=== PATIENT | female | born 1975 | race Hispanic/Latino ===

== ENCOUNTER 2016-11-29 13:27 | Outpatient (CLI) | payer BC | END 2016-11-29 13:28 | disposition home or self-care (01) | LOC: LAB 13:27 | PROVIDERS: ATTEND Obstetrics & Gynecology | DX: N92.6 Irregular menstruation, unspecified (principal) | CPT/HCPCS: 36415; 82670; 83001; 84439; 84443 ==

== ENCOUNTER 2016-12-21 11:00 | Outpatient (CLI) | payer BC | END 2016-12-21 11:01 | disposition home or self-care (01) | LOC: SLR 11:00 | PROVIDERS: ATTEND Internal Medicine | DX: G47.33 Obstructive sleep apnea (adult) (pediatric) (principal); E66.9 Obesity, unspecified | CPT/HCPCS: 95810 ==

== ENCOUNTER 2017-02-15 09:35 | Outpatient (CLI) | payer BC ==
[~2017-02-15 09:35] MED LIST: PROVENTIL IH ONE
== END 2017-02-15 09:36 | disposition home or self-care (01) ==
LOC: PF 09:35
PROVIDERS: ATTEND Specialist
DX: I10 Essential (primary) hypertension (principal)
CPT/HCPCS: 94060; 94640; 94726; 94729

== ENCOUNTER 2017-02-18 08:44 | Outpatient (CLI) | payer BC | END 2017-02-18 08:45 | disposition home or self-care (01) | LOC: CARD 08:44 | PROVIDERS: ATTEND Specialist | DX: E10.43 Type 1 diabetes mellitus with diabetic autonomic (poly)neuropathy (principal); I10 Essential (primary) hypertension; E66.09 Other obesity due to excess calories | CPT/HCPCS: 93005; 93010; 93017 ==

== ENCOUNTER 2017-02-24 07:02 | Outpatient (CLI) | payer BC ==
[2017-02-24 07:18] LABS: Basophils % (Auto) 0.4 % (0.0-1.8); Eosinophils % (Auto) 1.2 % (0.0-4.3); Hematocrit 49.6 % (30.3-42.9); Hemoglobin 16.6 gm/dl (10.1-14.3); Mean Corpuscular HGB Conc 34 % (30-34); Mean Corpuscular Hemoglobin 31 pg (28-32); Mean Corpuscular Volume 91 fl (79-97); Platelet Count 197 K/mm3 (140-440); Red Blood Count 5.45 M/mm3 (3.65-5.03); Red Cell Distribution Width 13.4 % (13.2-15.2); White Blood Count 7.6 K/mm3 (4.5-11.0)
[2017-02-24 07:35] LABS: Alanine Aminotransferase 16 units/L (7-56); Albumin 3.7 g/dL (3.9-5); Albumin/Globulin Ratio 1.2 %; Anion Gap 17 mmol/L; BUN/Creatinine Ratio 18.33; Bilirubin,Total 0.5 mg/dL (0.1-1.2); Blood Urea Nitrogen 11 mg/dL (7-17); Calcium 8.7 mg/dL (8.4-10.2); Carbon Dioxide 21 mmol/L (22-30); Chloride 100.6 mmol/L (98-107); Cholesterol 172 mg/dL (50-199); Glucose 240 mg/dL (65-100); HDL Cholesterol 47 mg/dL (40-59); LDL Cholesterol,Direct 107 mg/dL (50-130); Sodium 135 mmol/L (137-145); Total Protein 6.8 g/dL (6.3-8.2); Triglycerides 91 mg/dL (2-149)
[2017-02-24 08:38] LABS: Alkaline Phosphatase 91 units/L (35-129)
[2017-02-27 19:14] LABS: Vitamin D, 25-OH, Total 21 ng/mL (30-100)
== END 2017-02-24 07:03 | disposition home or self-care (01) ==
LOC: LAB 07:02
PROVIDERS: ATTEND Specialist
DX: E11.65 Type 2 diabetes mellitus with hyperglycemia (principal); E55.9 Vitamin D deficiency, unspecified
CPT/HCPCS: 36415; 80053; 80061; 82306; 83036; 85025

== ENCOUNTER 2017-07-01 08:08 | Outpatient (CLI) | payer BC ==
[2017-07-01 08:25] LABS: Basophils % (Auto) 0.6 % (0.0-1.8); Eosinophils % (Auto) 0.7 % (0.0-4.3); Hematocrit 46.7 % (30.3-42.9); Hemoglobin 15.9 gm/dl (10.1-14.3); Mean Corpuscular HGB Conc 34 % (30-34); Mean Corpuscular Hemoglobin 32 pg (28-32); Mean Corpuscular Volume 93 fl (79-97); Platelet Count 210 K/mm3 (140-440); Red Blood Count 5.04 M/mm3 (3.65-5.03); White Blood Count 7.6 K/mm3 (4.5-11.0)
[2017-07-01 09:15] LABS: Alanine Aminotransferase 47 units/L (7-56); Albumin 3.8 g/dL (3.9-5); Albumin/Globulin Ratio 1.1 %; Alkaline Phosphatase 114 units/L (35-129); Anion Gap 26 mmol/L; BUN/Creatinine Ratio 21.66; Blood Urea Nitrogen 13 mg/dL (7-17); Calcium 8.6 mg/dL (8.4-10.2); Carbon Dioxide 16 mmol/L (22-30); Chloride 98.2 mmol/L (98-107); Cholesterol 221 mg/dL (50-199); Glucose 396 mg/dL (65-100); HDL Cholesterol 45 mg/dL (40-59); LDL Cholesterol,Direct 147 mg/dL (50-130); Potassium 4.4 mmol/L (3.6-5.0); Sodium 136 mmol/L (137-145); Total Protein 7.3 g/dL (6.3-8.2); Triglycerides 147 mg/dL (2-149)
== END 2017-07-01 08:09 | disposition home or self-care (01) ==
LOC: LAB 08:08
PROVIDERS: ATTEND Specialist
DX: Z01.812 Encounter for preprocedural laboratory examination (principal); E11.9 Type 2 diabetes mellitus without complications; E66.01 Morbid (severe) obesity due to excess calories; K30 Functional dyspepsia
CPT/HCPCS: 36415; 80053; 80061; 83036; 84443; 85025

== ENCOUNTER 2017-07-05 06:19 | Day surgery (SDC) | payer BC ==
[2017-07-05] MEDS ORDERED: NACL 0.9% 1000 ML 1,000 ML IV SCH (08:00)
[2017-07-05] MEDS ORDERED: DIPRIVAN 10 MG/ML IV ONE (08:03)
--- NOTE | 2017-07-05 08:03 | Anesthesia Day of Surgery ---
Anesthesia Day of Surgery - Day of Surgery Patient Examined: Yes Patient H&P Reviewed: Yes Patient is NPO: Yes
--- NOTE | 2017-07-05 08:03 | Anesthesia Consultation ---
Anesthesia Consult and Med Hx Date of service: 07/05/17 - Airway Anesthetic Teeth Evaluation: Good ROM Head & Neck: Adequate Mental/Hyoid Distance: Adequate Mallampati Class: Class I Intubation Access Assessment: Probably Good - Pulmonary Exam CTA: Yes - Cardiac Exam Cardiac Exam: RRR - Pre-Operative Health Status ASA Pre-Surgery Classification: ASA3 Proposed Anesthetic Plan: MAC - Pulmonary Hx Sleep Apnea: Yes - Cardiovascular System Hx Hypertension: Yes (NO MEDICATIONS, "I WAS ON PILL TO PROTECT MY KIDNEYS,NO LONGER TAKES") - Gastrointestinal Hx Gastroesophageal Reflux Disease: Yes - Endocrine Hx Non-Insulin Dependent Diabetes: Yes - Other Systems Hx Obesity: Yes
[2017-07-05 08:53] VITALS: BP 124/71
--- NOTE | 2017-07-05 09:07 | Post Anesthesia Evaluation ---
- Post Anesthesia Evaluation Patient Participated: Yes Airway Patent: Yes Stable Respiratory Function: Yes Nausea/Vomiting: No Temp > 96.8F: Yes Pain Manageable: Yes Adequeate Hydration: Yes Anesthesia Complications: No Block Receding Appropriately: Not Applicable Patient on Ventilator: No
== END 2017-07-05 06:20 | disposition home or self-care (01) ==
LOC: GIO 06:19
PROVIDERS: ATTEND Specialist
DX: K44.9 Diaphragmatic hernia without obstruction or gangrene (principal); K21.0 Gastro-esophageal reflux disease with esophagitis; G47.33 Obstructive sleep apnea (adult) (pediatric); I10 Essential (primary) hypertension; E11.9 Type 2 diabetes mellitus without complications; M19.90 Unspecified osteoarthritis, unspecified site; E66.01 Morbid (severe) obesity due to excess calories; Z68.38 Body mass index [BMI] 38.0-38.9, adult; Z88.2 Allergy status to sulfonamides; Z88.1 Allergy status to other antibiotic agents; Z98.890 Other specified postprocedural states; Z72.89 Other problems related to lifestyle; Z98.51 Tubal ligation status; Z79.4 Long term (current) use of insulin; Z79.899 Other long term (current) drug therapy; Z83.3 Family history of diabetes mellitus; Z82.49 Family history of ischemic heart disease and other diseases of the circulatory system
CPT/HCPCS: 43235; 81025; J2704; J7030

== ENCOUNTER 2017-07-12 07:13 | Inpatient (IN) | payer BC ==
[~2017-07-12 07:13] MED LIST changes: +APRESOLINE IV PRN; +DILAUDID IV PRN; +FLAGYL 500 MG/100 ML 500 MG/100 ML BAG IV NR; +MORPHINE IV PRN; -PROVENTIL IH ONE; +REGLAN IV PRN; +TRANSDERM-SCOP TD SCH; +ZOFRAN IV PRN
[2017-07-12] MEDS ORDERED: MARCAINE-EPI 0.5%-1:200,000 INFILTRATI ONE ×2 (07:45→09:21)
[2017-07-12] MEDS ORDERED: NACL BACTERIOSTATIC INFILTRATI ONE (07:45)
--- NOTE | 2017-07-12 07:46 | Anesthesia Day of Surgery ---
Anesthesia Day of Surgery - Day of Surgery Patient Examined: Yes Patient H&P Reviewed: Yes Patient is NPO: Yes
[2017-07-12] MEDS ORDERED: ZEMURON IV ONE ×2 (07:47→09:05)
--- NOTE | 2017-07-12 07:48 | Anesthesia Consultation ---
Anesthesia Consult and Med Hx Date of service: 07/12/17 - Airway Anesthetic Teeth Evaluation: Good ROM Head & Neck: Adequate Mental/Hyoid Distance: Adequate Mallampati Class: Class II Intubation Access Assessment: Probably Good - Pulmonary Exam CTA: Yes - Cardiac Exam Cardiac Exam: RRR - Pre-Operative Health Status ASA Pre-Surgery Classification: ASA3 Proposed Anesthetic Plan: General - Pulmonary Hx Smoking: No Hx Sleep Apnea: Yes (doesn't use her CPAP) - Cardiovascular System Hx Hypertension: Yes (not treated) - Central Nervous System Hx Psychiatric Problems: No - Gastrointestinal Hx Gastroesophageal Reflux Disease: Yes - Endocrine Hx Non-Insulin Dependent Diabetes: Yes - Other Systems Hx Alcohol Use: Yes (occas) Hx Cancer: No Hx Obesity: Yes
[2017-07-12] MEDS ORDERED: XYLOCAINE MPF 2% ONE (07:50)
[2017-07-12] MEDS ORDERED: DIPRIVAN 10 MG/ML IV ONE (07:51)
[2017-07-12] MEDS ORDERED: DILAUDID ONE (07:51)
[2017-07-12] MEDS ORDERED: PEPCID IV NR (08:00)
[2017-07-12] MEDS ORDERED: TRANSDERM-SCOP TD NR (08:00)
[2017-07-12] MEDS ORDERED: VERSED IV NR (08:00)
[2017-07-12] MEDS ORDERED: LOVENOX SUB-Q NR (08:00)
[2017-07-12] MEDS ORDERED: NACL 0.9% 1000 ML 1,000 ML IV SCH (08:00)
[2017-07-12 08:06] LABS: Bilirubin,Urine NEG (Negative); Blood,Urine NEG (Negative); Ketones,Urine 80 mg/dL (Negative); Leukocyte Esterase,Urine NEG (Negative); Mucus,Urine FEW /HPF; Nitrite,Urine NEG (Negative); Protein,Urine <15 mg/dL mg/dL (Negative); Urobilinogen,Urine < 2.0 mg/dL (<2.0)
[2017-07-12] MEDS ORDERED: XYLOCAINE 1% 20 mL ONE (08:19)
[2017-07-12] MEDS ORDERED: ZOFRAN ONE (08:54)
[2017-07-12] MEDS ORDERED: DECADRON ONE (08:54)
[2017-07-12] MEDS ORDERED: ANCEF ONE ×2 (09:05→09:07)
[2017-07-12] MEDS ORDERED: XYLOCAINE 1% 20 mL INFILTRATI ONE (09:21)
[2017-07-12] MEDS ORDERED: NACL 0.9% IR ONE (09:22)
[2017-07-12] MEDS ORDERED: ROBINUL ONE (09:47)
[2017-07-12] MEDS ORDERED: NEOSTIGMINE ONE (09:48)
[2017-07-12] MEDS ORDERED: NACL 0.9% 1000 ML 1,000 ML ONE (09:49)
[2017-07-12] MEDS ORDERED: NEO SYNEPHRINE/NS Syringe(OR USE) IV ONE (10:00)
[2017-07-12] MEDS ORDERED: DILAUDID IV PRN (10:30)
[2017-07-12 10:42] LABS: Basophils % (Auto) 0.4 % (0.0-1.8); Eosinophils % (Auto) 0.7 % (0.0-4.3); Hematocrit 46.4 % (30.3-42.9); Hemoglobin 15.4 gm/dl (10.1-14.3); Mean Corpuscular HGB Conc 33 % (30-34); Mean Corpuscular Hemoglobin 32 pg (28-32); Mean Corpuscular Volume 96 fl (79-97); Platelet Count 211 K/mm3 (140-440); Red Blood Count 4.86 M/mm3 (3.65-5.03); Red Cell Distribution Width 13.2 % (13.2-15.2); White Blood Count 8.5 K/mm3 (4.5-11.0)
[2017-07-12 10:57] LABS: Alanine Aminotransferase 74 units/L (7-56); Albumin 3.8 g/dL (3.9-5); Albumin/Globulin Ratio 1.2 %; Alkaline Phosphatase 82 units/L (35-129); Anion Gap 24 mmol/L; BUN/Creatinine Ratio 16.66; Blood Urea Nitrogen 10 mg/dL (7-17); Calcium 8.1 mg/dL (8.4-10.2); Carbon Dioxide 19 mmol/L (22-30); Chloride 100.8 mmol/L (98-107); Glucose 262 mg/dL (65-100); Potassium 4.6 mmol/L (3.6-5.0); Sodium 139 mmol/L (137-145); Total Protein 6.9 g/dL (6.3-8.2)
[2017-07-12] MEDS: MYLICON PO PRN ×2 (11:10→21:33)
[2017-07-12] MEDS: LACTATED RINGERS 1,000 ML IV SCH ×2 (14:32→21:32)
[2017-07-13 03:49] LABS: Basophils % (Auto) 0.2 % (0.0-1.8); Eosinophils % (Auto) 0.1 % (0.0-4.3); Hematocrit 42.7 % (30.3-42.9); Hemoglobin 14.5 gm/dl (10.1-14.3); Mean Corpuscular HGB Conc 34 % (30-34); Mean Corpuscular Hemoglobin 32 pg (28-32); Mean Corpuscular Volume 95 fl (79-97); Platelet Count 192 K/mm3 (140-440); Red Blood Count 4.51 M/mm3 (3.65-5.03); Red Cell Distribution Width 13.3 % (13.2-15.2); White Blood Count 8.7 K/mm3 (4.5-11.0)
[2017-07-13 04:13] LABS: Alanine Aminotransferase 55 units/L (7-56); Albumin 3.5 g/dL (3.9-5); Albumin/Globulin Ratio 1.1 %; Alkaline Phosphatase 77 units/L (35-129); Anion Gap 25 mmol/L; Blood Urea Nitrogen 8 mg/dL (7-17); Calcium 8.4 mg/dL (8.4-10.2); Carbon Dioxide 16 mmol/L (22-30); Chloride 99.6 mmol/L (98-107); Glucose 205 mg/dL (65-100); Potassium 4.9 mmol/L (3.6-5.0); Sodium 136 mmol/L (137-145); Total Protein 6.8 g/dL (6.3-8.2)
[2017-07-13] MEDS: LACTATED RINGERS 1,000 ML IV SCH ×2 (05:00→10:24)
[2017-07-13 08:01] VITALS: BP 137/75
[2017-07-13] MEDS ORDERED: LOVENOX SUB-Q SCH (10:00)
--- NOTE | 2017-07-13 11:40 | Discharge Summary ---
Providers - Providers Date of Admission: 07/12/17 07:13 Date of discharge: 07/13/17 Attending physician: HE BONE Primary care physician: ZAN DURAND Hospitalization Condition: Good Procedures: Lap sleeve gastrectomy Hospital course: 42 y.o. female admitted for lap sleeve gastrectomy. Pt tolerated procedure. She was discharged on POD 1. Disposition: DC-01 TO HOME OR SELFCARE Core Measure Documentation - Palliative Care Palliative Care/ Comfort Measures: Not Applicable - Core Measures Any of the following diagnoses?: none Exam - Physical Exam Narrative exam: VSS Abd: soft, obese, incisions cdi. no rebound no guarding - Constitutional Vitals: Temp Pulse Resp BP Pulse Ox 98.2 F 88 20 137/75 100 07/13/17 07:00 07/13/17 07:00 07/13/17 07:00 07/13/17 07:00 07/13/17 07:00 Plan Activity: other (no lifting >15lbs. must ambulate often- every hr. ) Diet: clear liquids (sugar free clears) Additional Instructions: follow up for wound check in 24-48hrs. Keep dressings in place until wound check. Follow up with: ZAN DURAND MD [Primary Care Provider] - 7 Days
--- NOTE | 2017-07-13 11:41 | Admit Criteria Form ---
Admission Criteria Documentation: AMBULATORY SURGERY EXCEPTION CRITERIA Ambulatory Surgery Exception Criteria ( Place 'X' for any and all applicable criteria): Surgery or procedure performed on ambulatory basis may require inpatient stay for[A] ANY ONE of the following(1)(2)(3)(4)(5)(6)(7)(8)(9): [X] I. A preoperative situation, condition, or finding that warrants inpatient stay as indicated by ANY ONE of the following: [] a) Inpatient care needed because of severity of a disease or condition rather than the surgery (eg, severe cardiac or respiratory disease, severe infection) (15) (16 ) (17) (18) [] b) Emergent procedure (eg, angioplasty for acute ischemia)(19) [] c) Complex surgical approach or situation as indicated by ANY ONE of the following(3): [] i) Open approach needed instead of usual endoscopic, transcatheter, or other less invasive procedure [] ii) Difficult approach because of previous operation [] iii) Airway monitoring required after open neck procedures(20)(21) [] iv) Large mass requiring unusually extensive dissection [] v) Additional complicating feature requiring inpatient care (eg, drain management)(22(23): [X] d) Major surgery in a pt with high anesthetic risk as indicated by ANY ONE of the following (2)(3)(5)(7)(8): [X] i) ASA risk class III or higher (severe systemic disease impairing function) [D] [] ii) Advanced age (eg, older than 85 years)(14)(24) [] iii) Symptomatic heart failure(25) [] iv) Symptomatic asthma or COPD(8)(21) [] v) Morbid obesity with hemodynamic or respiratory problems(20)( 21)(26)(27) [] vi) Obstructive sleep apnea(20)(21) [] vii) Former premature infants who are younger than 60 weeks [] viii) High risk for severe postoperative abnormalities (eg, severe postoperative hypocalcemia after parathyroidectomy for severe hyperparathyroidism)(27)( 28) [] ix) Unstable angina(25) [] e) Drug-related risk requiring inpatient stay as indicated by ANY ONE of the following(5)(10)(14)(32)(33) [] i) Procedure requires discontinuing drugs or other therapy (eg , antiarrhythmic medication, antiseizure medication), which necessitates inpatient observation or treatment.(18)(31) [] ii) Major surgery and high risk drug use as indicated by ANY ONE of the following: [] 1) Active abuse of cocaine or similar drug [] 2) Monoamine oxidase inhibitor use [] 3) Other drug identified as posing risk [] f) Inadequate outpatient care situation as indicated by ANY ONE of the following(5)(10)(14)(32)(33) [] i) Patient lives remote from medical facility and procedure has urgent complication potential, and temporary nearby residence cannot be arranged [] ii) Patient will have postprocedure incapacitation and inadequate assistance at home, or alternative level of care cannot be arranged. [] iii) Patient will have long general anesthesia or procedure side effect resolution time, and competent person to stay with patient on first postoperative night at home or alternative level of care cannot be arranged. []iv) Other inadequate outpatient situation that cannot be handled by other means [] II. A perioperative event, condition, or finding that warrants inpatient stay as indicated by ANY ONE of the following (1)(2)(3): [] a) Inadequate physiologic recovery: cardiovascular, respiratory, or hemodynamic status not normal or near preoperative baseline(18) [] b) Hemodynamic instability [] c) Patient not alert with near normal or baseline mental status [] d) Temperature not normal or as expected and not appropriate for outpatient treatment of condition [] e) Ambulatory or appropriate activity level status not yet achieved post procedure [E](34)(35)(36) [] f) Operative site not appropriate (eg, unexpected or excessive drainage or bleeding) [] g) Postoperative effects not resolved or adequately managed (eg, significant pain or vomiting not appropriate for outpatient or next level of care)(10)(12) [] h) Complicating features requiring inpatient care as indicated by ANY ONE of the following(37): [] i) Severe complications of procedure (eg, bowel injury, airway compromise, vascular injury,severe hemorrhage) [] ii) Extensive (eg, dissection far beyond usual scope of procedure ) or prolonged (eg, 120 minutes beyond usual) surgery needed requiring inpatient postoperative care [] iii) Conversion to an open or complex procedure that requires inpatient care (eg, open vs laparoscopic cholecystectomy, abdominal vs vaginal hysterectomy)(38) [] iv) Comorbid condition or test result identified during or post procedure that requires inpatient care (7) [] v) Malignant hyperthermia(30) [] vi) Other complicating feature requiring inpatient care(22)(23) Inpatient stay may be needed until ALL of the following are present (1)(2)(3)(4) (5)(6)(10)(14)(33)(40): []a) Physiologic recovery: cardiovascular, respiratory, and hemodynamic status normal or near preoperative baseline []b) Hemodynamic stability []c) Patient alert, with near normal or baseline mental status []d) Temperature appropriate: patient afebrile or temperature appropriate for outpt treatment of condition []e) Activity level appropriate: ambulatory or appropriate activity level post procedure []f) Operative site appropriate as indicated by ALL of the following: []i) Site dry or with expected drainage []ii) Any blood noted is as expected for procedure. []g) Postoperative effects resolved or managed as indicated by ALL of the following: []i) Pain management appropriate for outpatient (or next level of) care(10) []ii) Minimal nausea and vomiting: if present, successfully treated with oral medication(12) []iii) Headache, dizziness, or drowsiness (if present) are mild. []h) Voiding status acceptable as indicated by ANY ONE of the following: []i) Voiding spontaneously []ii) No voiding but instructions given for follow-up in 6 to 8 hours []iii) Urinary catheter in place, and instructions given for follow-up []i) Complicating features requiring inpatient care manageable at a lower level of care(37) []j) Comorbid conditions manageable at a lower level of care(37) The original [employer] content created by [employer] has been revised. The portions of the content which have been revised are identified through the use of italic text or in bold, and [facility] [employer] has neither reviewed nor approved the modified material. All other unmodified content is copyright [employer]. Please see references footnoted in the original [employer] edition 2016 Admission Criteria Met: Yes
== END 2017-07-13 15:00 | disposition home or self-care (01) | DRG 621 ==
LOC: 3A 07:13 → 2B-SURG 10:26
PROVIDERS: ADMIT Specialist; ATTEND Specialist
PROC: 0DB64Z3 Excision of Stomach, Percutaneous Endoscopic Approach, Vertical (ICD-10-PCS; principal; 2017-07-12)
PROC: 0BQS4ZZ (ICD-10-PCS; 2017-07-12)
PROC: 0BQR4ZZ (ICD-10-PCS; 2017-07-12)
DX: E66.01 Morbid (severe) obesity due to excess calories (principal); K44.9 Diaphragmatic hernia without obstruction or gangrene; K30 Functional dyspepsia; E11.9 Type 2 diabetes mellitus without complications; Z68.37 Body mass index [BMI] 37.0-37.9, adult
CPT/HCPCS: 36415; 80053; 81001; 81025; 82962; 85025; 88307; 94760; C9250; J0690; J1100; J1170; J1650; J1815; J2250; J2270; J2370; J2405; J2704; J2710; J7030; J7120

== ENCOUNTER 2017-09-13 09:20 | Outpatient (CLI) | payer BC ==
--- NOTE | 2017-09-13 13:30 | Mammography Report ---
BILATERAL DIGITAL SCREENING MAMMOGRAM with CAD: 09/13/17 09:20:00 CLINICAL: Routine screening. COMPARISON: 09/06/16 FINDINGS: There are bilateral scattered areas of fibroglandular density.No mass, architectural distortion or suspicious calcifications. IMPRESSION: No mammographic evidence of malignancy. BI-RADS CATEGORY: 1 -- Negative RECOMMENDATION: Routine mammographic screening in one year. COMMENT: Patient follow-up letters are generated by our [employer] application.
== END 2017-09-13 09:21 | disposition home or self-care (01) ==
LOC: MAMMO 09:20
PROVIDERS: ATTEND Obstetrics & Gynecology
DX: Z12.31 Encounter for screening mammogram for malignant neoplasm of breast (principal)
CPT/HCPCS: 77067; G0202

== ENCOUNTER 2017-10-24 08:11 | Outpatient (CLI) | payer BC ==
[2017-10-24 08:31] LABS: Basophils % (Auto) 0.4 % (0.0-1.8); Eosinophils % (Auto) 1.2 % (0.0-4.3); Hematocrit 42.4 % (30.3-42.9); Hemoglobin 14.5 gm/dl (10.1-14.3); Mean Corpuscular HGB Conc 34 % (30-34); Mean Corpuscular Hemoglobin 32 pg (28-32); Mean Corpuscular Volume 93 fl (79-97); Platelet Count 174 K/mm3 (140-440); Red Blood Count 4.55 M/mm3 (3.65-5.03); Red Cell Distribution Width 12.4 % (13.2-15.2); White Blood Count 4.6 K/mm3 (4.5-11.0)
[2017-10-24 08:55] LABS: Alanine Aminotransferase 14 units/L (7-56); Albumin 3.8 g/dL (3.9-5); Albumin/Globulin Ratio 1.4 %; Alkaline Phosphatase 88 units/L (35-129); Anion Gap 22 mmol/L; BUN/Creatinine Ratio 16; Blood Urea Nitrogen 8 mg/dL (7-17); Calcium 8.8 mg/dL (8.4-10.2); Carbon Dioxide 24 mmol/L (22-30); Chloride 99.4 mmol/L (98-107); Glucose 282 mg/dL (65-100); Iron 101 ug/dL (37-170); Potassium 3.4 mmol/L (3.6-5.0); Sodium 142 mmol/L (137-145); Total Iron Binding Capacity 211 mcg/dL (250-450); Total Protein 6.6 g/dL (6.3-8.2); Transferrin 197 mg/dl (192-382)
[2017-10-31 13:27] LABS: Vitamin D, 25-OH, Total 28 ng/mL (30-100)
== END 2017-10-24 08:12 | disposition home or self-care (01) ==
LOC: LAB 08:11
PROVIDERS: ATTEND Specialist
DX: Z09 Encounter for follow-up examination after completed treatment for conditions other than malignant neoplasm (principal); E11.9 Type 2 diabetes mellitus without complications; E61.8 Deficiency of other specified nutrient elements; Z98.84 Bariatric surgery status
CPT/HCPCS: 36415; 80053; 82306; 82607; 83550; 83970; 84207; 84425; 85025

== ENCOUNTER 2017-12-19 14:18 | Outpatient (CLI) | payer BC ==
--- NOTE | 2017-12-19 20:05 | XRay Report ---
FINAL REPORT PROCEDURE: XR HUMERUS 2+V RT TECHNIQUE: RIGHT humerus radiographs, AP and lateral views. HISTORY: BICEPS TENDINITIS ON RIGHT COMPARISON: No prior studies are available for comparison. FINDINGS: Fracture (s) and/or Dislocation(s): None . Joint space(s): Normal. Soft tissues: Normal. Bone mineralization: Normal. Foreign bodies: None. IMPRESSION: Normal Examination.
== END 2017-12-19 14:19 | disposition home or self-care (01) ==
LOC: XRAY 14:18
PROVIDERS: ATTEND Internal Medicine
DX: M75.21 Bicipital tendinitis, right shoulder (principal)

== ENCOUNTER 2018-03-06 12:37 | Outpatient (CLI) | payer BC ==
--- NOTE | 2018-03-06 14:40 | Cat Scan Report ---
CT ABDOMEN PELVIS WITHOUT CONTRAST: HISTORY: Periumbilical abdominal pain. COMPARISON: none. TECHNIQUE: Helical CT in 1.25mm intervals without IV contrast. Sagittal and coronal reconstructions. FINDINGS: Lung bases: Normal. Liver: Normal. Biliary system: Normal. Pancreas: Normal. Spleen: Normal. Kidneys/ureters/bladder: Normal. Adrenal glands: Normal. Aorta: Normal. Intestines: Normal. Appendix: Normal. Pelvic viscera: Normal. Bilateral tubal ligation clips are noted Ascites: None. Adenopathy: None. Musculoskeletal: A paraumbilical hernia to the right of midline is identified with a 2.4 cm neck. The hernia sac contains fat and measures 5.6 x 5.2 x 3.7 cm. No bowel loops are incorporated. IMPRESSION: Right paraumbilical hernia containing fat as outlined above.
== END 2018-03-06 12:38 | disposition home or self-care (01) ==
LOC: CT 12:37
PROVIDERS: ATTEND Surgery
DX: K42.9 Umbilical hernia without obstruction or gangrene (principal); Z98.51 Tubal ligation status
CPT/HCPCS: 74176

== ENCOUNTER 2018-03-30 05:53 | Day surgery (SDC) | payer BC ==
[2018-03-24 09:02] LABS: Basophils % (Auto) 0.5 % (0.0-1.8); Eosinophils # (Auto) 0.1 K/mm3 (0.0-0.4); Eosinophils % (Auto) 1.5 % (0.0-4.3); Hematocrit 43.5 % (30.3-42.9); Hemoglobin 14.6 gm/dl (10.1-14.3); Lymphocytes # (Auto) 2.2 K/mm3 (1.2-5.4); Lymphocytes % (Auto) 30.3 % (13.4-35.0); Mean Corpuscular HGB Conc 34 % (30-34); Mean Corpuscular Hemoglobin 31 pg (28-32); Mean Corpuscular Volume 92 fl (79-97); Monocytes # (Auto) 0.4 K/mm3 (0.0-0.8); Monocytes % (Auto) 5.5 % (0.0-7.3); Platelet Count 206 K/mm3 (140-440); Red Blood Count 4.75 M/mm3 (3.65-5.03)
--- NOTE | 2018-03-24 09:05 | Anesthesia Consultation ---
Anesthesia Consult and Med Hx Date of service: 03/30/18 - Airway Anesthetic Teeth Evaluation: Good ROM Head & Neck: Adequate Mental/Hyoid Distance: Adequate Mallampati Class: Class II Intubation Access Assessment: Good - Pulmonary Exam CTA: Yes - Cardiac Exam Cardiac Exam: RRR - Pre-Operative Health Status ASA Pre-Surgery Classification: ASA3 Proposed Anesthetic Plan: General Nerve Block: TAP - Pulmonary Hx Smoking: No Hx Sleep Apnea: Yes - Cardiovascular System Hx Hypertension: Yes (NO MEDS) - Central Nervous System Hx Psychiatric Problems: No - Gastrointestinal Hx Gastroesophageal Reflux Disease: Yes - Endocrine Hx Insulin Dependent Diabetes: Yes - Other Systems Hx Alcohol Use: Yes (RARELY) Hx Substance Use: No Hx Cancer: No Hx Obesity: Yes
[2018-03-24 09:18] LABS: BUN/Creatinine Ratio 28; Blood Urea Nitrogen 11 mg/dL (7-17); Calcium 8.8 mg/dL (8.4-10.2); Hemolysis Index 29
[~2018-03-30 05:53] MED LIST changes: -APRESOLINE IV PRN; -DILAUDID IV PRN; -FLAGYL 500 MG/100 ML 500 MG/100 ML BAG IV NR; +MARCAINE 0.5% INFILTRATI ONE; -MORPHINE IV PRN; +NACL 0.9% IR ONE; -REGLAN IV PRN; -TRANSDERM-SCOP TD SCH; +WATER FOR IRRIG STERILE IR ONE; -ZOFRAN IV PRN
[2018-03-30] MEDS ORDERED: NACL BACTERIOSTATIC INFILTRATI ONE (06:18)
[2018-03-30] MEDS ORDERED: XYLOCAINE 1% 20 mL ONE (06:53)
[2018-03-30] MEDS ORDERED: MARCAINE 0.5% 30 ML INFILTRATI ONE (06:53)
[2018-03-30] MEDS ORDERED: ANCEF/STERILE WATER 2 GM/20 ML IV NR (07:00)
[2018-03-30] MEDS ORDERED: HEPARIN SUB-Q NR (07:15)
[2018-03-30] MEDS ORDERED: ZOFRAN IV PRN (07:28)
[2018-03-30] MEDS ORDERED: SUBLIMAZE IV PRN (07:28)
[2018-03-30] MEDS ORDERED: DILAUDID IV PRN (07:28)
--- NOTE | 2018-03-30 07:28 | Anesthesia Day of Surgery ---
Anesthesia Day of Surgery - Day of Surgery Patient Examined: Yes Patient H&P Reviewed: Yes Patient is NPO: Yes
[2018-03-30] MEDS ORDERED: NAROPIN O.5% ONE (07:29)
[2018-03-30] MEDS ORDERED: LACTATED RINGERS 1,000 ML IV SCH (08:00)
[2018-03-30] MEDS ORDERED: VERSED IV NR (08:00)
[2018-03-30] MEDS ORDERED: DIPRIVAN 10 MG/ML IV ONE (08:03)
[2018-03-30] MEDS ORDERED: XYLOCAINE CARDIAC IV ONE (08:03)
[2018-03-30] MEDS ORDERED: ZEMURON IV ONE ×2 (09:48→10:51)
[2018-03-30] MEDS ORDERED: ePHEDrine SULFATE ONE (09:48)
[2018-03-30] MEDS ORDERED: QUELICIN ONE (09:48)
[2018-03-30] MEDS ORDERED: ZOFRAN ONE (09:48)
[2018-03-30] MEDS ORDERED: TORADOL ONE (10:57)
[2018-03-30] MEDS ORDERED: ROBINUL ONE ×2 (10:57)
[2018-03-30] MEDS ORDERED: NEOSTIGMINE ONE (10:57)
[2018-03-30] MEDS ORDERED: SUBLIMAZE ONE (11:00)
--- NOTE | 2018-03-30 11:14 | Short Stay Summary ---
Short Stay Documentation Date of service: 03/30/18 Narrative H&P: 42 yo F with hx of lap gastric sleeve, now with symptomatic ventral hernia. She was seen in office and presents for ventral hernia repair. She has no complaints. - History Principal diagnosis: ventral hernia H&P: obtained from office - Allergies and Medications Current Medications: Allergies cefaclor [From Ceclor] Allergy (Verified 03/22/18 16:18) Anaphylaxis Sulfa (Sulfonamide Antibiotics) Allergy (Verified 03/22/18 16:18) Rash Home Medications Medication Instructions Recorded Confirmed Last Taken Type Humalog 03/30/18 03/29/18 History Pantoprazole [Protonix TAB] 20 mg QDAY 03/30/18 03/30/18 03/29/18 History Active Medications Cefazolin Sodium (Ancef/Sterile Water 2 Gm/20 Ml) 2 gm IV PREOP NR Stop: 03/30/18 23:45 Fentanyl (Sublimaze) 50 mcg IV Q5MIN PRN PRN Reason: Pain , Severe (7-10) Stop: 03/30/18 13:00 Hydromorphone HCl (Dilaudid) 0.5 mg IV Q10MIN PRN PRN Reason: Pain, Moderate (4-6) Stop: 03/30/18 13:00 Lactated Ringer's (Lactated Ringers) 1,000 mls @ 42 mls/hr IV DIRECT ROLAND Last Admin: 03/30/18 08:35 Dose: 42 mls/hr Midazolam HCl (Versed) 2 mg IV PREOP NR Stop: 03/30/18 23:59 Last Admin: 03/30/18 07:35 Dose: 2 mg - Brief post op/procedure progress note Date of procedure: 03/30/18 Pre-op diagnosis: ventral hernia Post-op diagnosis: same Procedure: Robotic assisted laparoscopic ventral hernia repair with mesh Anesthesia: GETA, local Findings: 8.5 cm (w) x 10 cm (l) hernia defect Surgeon: JEAN-PIERRE GARCIA Unit Assembler: ABDIEL PUENTE Estimated blood loss: minimal Pathology: none Condition: stable - Hospital course Hospital course: Pt was observed in PACU and discharged to home in stable condition once criteria was met. Short Stay Discharge Plan Activity: other (no lifting more than 15 lbs for the next [address] if taking narcotic pain meds.) Diet: low fat Wound: open to air (May shower tomorrow, pat incisions dry, do not scrub. Do not submerge incisions in water until healed.), other (wear abdominal binder at all times. may remove when you shower.) Follow up with: ZAN DURAND MD [Primary Care Provider] - 7 Days JEAN-PIERRE GARCIA DO [Staff Physician] - 14 Days Prescriptions: HYDROcodone/APAP 5-325 [Hammond 5/325] 1 each PO Q6HR PRN #15 tablet PRN Reason: Pain
[2018-03-30] MEDS ORDERED: HumuLIN R IV NR (11:59)
[2018-03-30 14:31] VITALS: BP 118/71
--- NOTE | 2018-03-30 17:29 | Post Anesthesia Evaluation ---
- Post Anesthesia Evaluation Patient Participated: Yes Airway Patent: Yes Stable Respiratory Function: Yes Nausea/Vomiting: No Temp > 96.8F: Yes Pain Manageable: Yes Adequeate Hydration: Yes Anesthesia Complications: No
--- NOTE | 2018-03-30 17:57 | Operative Report ---
Operative Report Operative Report: Date of procedure: 03/30/18 Pre-op diagnosis: ventral hernia Post-op diagnosis: same Procedure: Robotic assisted laparoscopic ventral hernia repair with mesh Anesthesia: JOSEA, local Findings: 8.5 cm (w) x 10 cm (l) hernia defect Surgeon: JEAN-PIERRE GARCIA Orientation And Mobility Specialist: ABDIEL PUENTE Estimated blood loss: minimal Pathology: none Condition: stable HPI and indication: 42 yo F with hx of lap sleeve gastrectomy was seen in the office for complaints of bulge in abdomen above the umbilicus concerning for hernia. Ct Scan A/P confirmed the presence of a ventral hernia. The patient was symptomatic and therefore she elected for hernia repair. All risks, benefit and alternatives to surgery were discussed with the patient and questions answered. Consent was obtained in the office and the patient scheduled for elective Robotic assisted laparoscopic ventral hernia repair with mesh, possible open. Procedure in detail: The patient was identified in the preoperative area and taken back to the operating room and placed on the operating room table in supine position. After anesthesia was induced, a Jacobson catheter was sterilely placed by the circulating nurse. The arms were tucked and padded appropriately. The abdomen was then prepped and draped in usual sterile fashion and a timeout was performed. The abdomen was insufflated via a veress needle in the left upper quadrant. The position of the veress needle was confirmed using the saline drop test. The abdomen was insufflated to 15 mmHg and veress needle removed. A 12 mm incision was made in the left upper quadrant and a 12mm Optiview trocar was inserted through this incision. Abdomen was inspected there was no underlying injury to any of the abdominal contents. Ventral midline hernia was seen without adhesions. The patient was then placed in jackknife position and tilted towards the left. 2, 8 mm robotic trocars were placed under direct visualization, the first in the right upper quadrant and the second in the right lower quadrant. A 12 mm balloon trocar was placed in the right mid abdomen laterally. The robot was then docked in the usual fashion. The fascial defect was measured to be approximately 8.5 cm (w) x 10 cm (l). The abdomen was desufflated to 10 mmHg and the hernia defect was closed using a running 0-V lock suture and the hernia sac was incorporated into the repair. A composite parietex mesh cut to 13 cm (w) x 15cm (l) was used to reinforce the repair. A tagging suture using 0 - vicryl was placed on the abdominal wall side of the mesh at the north and south positions of the mesh. The mesh was rolled and placed into the 12mm left upper quadrant funeral assistant trocar. This was unrolled and tented up to the abdominal wall using Akatsuki device and tagging sutures. The mesh was sutured into place circumferentially using running 2-0 V loc suture x2. Hemostasis was ensured. The robot was then undocked. The fascia of 12 mm ports was closed using interrupted 0-vicryl sutures using the [email or web address]. The remaining trocars removed under direct visualization and the abdomen slowly desufflated. Mesh was seen to lay flat. The skin incisions were infilitrated with local anesthetic. The skin was closed using 4-0 monocryl subcuticular stitches and skin glue. At the end of the case, all sponge, instrument, sharp counts were correct 2. The jacobson catheter was removed. The patient was awoken from anesthesia, extubated and taken to PACU in stable condition. An abdominal binder was applied.
== END 2018-03-30 13:55 | disposition home or self-care (01) ==
LOC: OR 05:53
PROVIDERS: ATTEND Surgery
DX: K43.9 Ventral hernia without obstruction or gangrene (principal); K21.9 Gastro-esophageal reflux disease without esophagitis; I10 Essential (primary) hypertension; G47.30 Sleep apnea, unspecified; E11.9 Type 2 diabetes mellitus without complications; E66.9 Obesity, unspecified; Z98.51 Tubal ligation status; Z90.3 Acquired absence of stomach [part of]; Z88.2 Allergy status to sulfonamides; Z88.1 Allergy status to other antibiotic agents; Z98.890 Other specified postprocedural states; Z68.30 Body mass index [BMI] 30.0-30.9, adult
CPT/HCPCS: 36415; 49652; 80048; 82962; 84703; 85025; C1781; J0330; J0690; J1170; J1644; J1885; J2001; J2250; J2405; J2704; J2710; J2795; J3010; J7120; S2900; J1815

== ENCOUNTER 2018-12-24 08:29 | Emergency (ER) | payer BC ==
[2018-12-24] MEDS ORDERED: DECADRON IM ONE (09:08)
--- NOTE | 2018-12-24 09:10 | Emergency Department Report ---
Minor Respiratory - HPI Chief Complaint: Earache Stated Complaint: RT EAR PAIN Time Seen by Provider: 12/24/18 09:07 Duration: 2 Days Pain Location: Ear Severity: moderate Minor Respiratory: Yes Able to Tolerate Fluids, Yes Ear Pain (R), No Rhinorrhea, No Sore Throat, No Cough, No Sick Contacts, No Hemoptysis, No Chest Pain, No Shortness of Breath, No Fever Other History: R EAR PAIN ED Review of Systems ROS: Stated complaint: RT EAR PAIN Other details as noted in HPI Comment: All other systems reviewed and negative Constitutional: denies: chills, fever Eyes: denies: eye pain ENT: ear pain Respiratory: denies: cough Cardiovascular: denies: chest pain Endocrine: denies: flushing Gastrointestinal: denies: nausea Genitourinary: denies: dysuria Musculoskeletal: denies: back pain Skin: denies: rash Neurological: denies: headache Psychiatric: denies: anxiety Hematological/Lymphatic: denies: easy bleeding ED Past Medical Hx - Past Medical History Previous Medical History?: Yes Hx Hypertension: Yes (NO MEDS) Hx Congestive Heart Failure: No Hx Diabetes: Yes (X20 YEARS) Hx GERD: Yes Hx HIV: No - Surgical History Past Surgical History?: Yes Additional Surgical History: tonsilectomy/adenoidectomy- GASTRIC SLEEVE 2016 - Family History Family history: no significant - Social History Smoking Status: Never Smoker - Medications Home Medications: Home Medications Medication Instructions Recorded Confirmed Last Taken Type Humalog 03/30/18 03/29/18 History Pantoprazole [Protonix TAB] 20 mg QDAY 03/30/18 03/30/18 03/29/18 History Ciprofloxacin HCl [Cipro] 500 mg PO BID #14 tablet 12/24/18 Unknown Rx Minor Respiratory Exam - Exam General: Vital signs noted. No distress. Alert and acting appropriately. HEENT: Yes Moist Mucous Membranes, No Pharyngeal Erythema, No Pharyngeal Exudates, No Rhinorrhea, No Conjuctival Injection, No Frontal Tenderness, No Maxillary Tenderness Ear: Right TM Bulge, Right TM Erythema, Right EAC Pain, Neither EAC Discharge Neck: Yes Supple, No Adenopathy Lungs: Yes Good Air Exchange, No Wheezes, No Ronchi, No Stridor, No Cough, No Labored Respirations, No Retractions, No Use of Accessory Muscles, No Other Abnormal Lung Sounds Heart: Yes Regular, No Murmur Abdomen: Yes Normal Bowel Sounds, No Tenderness, No Peritoneal Signs Skin: No Rash, No Edema Neurologic: Alert and oriented, no deficits. Musculoskeletal: Unremarkable. ED Course Vital Signs 12/24/18 08:46 Temperature 99.2 F Pulse Rate 99 H Respiratory 18 Rate Blood Pressure 132/85 O2 Sat by Pulse 99 Oximetry ED Medical Decision Making - Medical Decision Making R OM RED MEDICATED DC WITH HOME MEDS - Differential Diagnosis SIMPLE EAR INFECTION Critical care attestation.: If time is entered above; I have spent that time in minutes in the direct care of this critically ill patient, excluding procedure time. ED Disposition Clinical Impression: Otitis media Disposition: DC-01 TO HOME OR SELFCARE Is pt being admited?: No Does the pt Need Aspirin: No Condition: Stable Instructions: Otitis Media (ED) Additional Instructions: MEDS ORDERED TODAY FOLLOW UP WITH PCP IF PERSISTS MOTRIN OR TYLENOL FOR PAIN OR FEVER DIET AND ACTIVITY TOLERATED Prescriptions: Ciprofloxacin HCl [Cipro] 500 mg PO BID #14 tablet Referrals: ARNAV FRANCO [Primary Care Provider] - 3-5 Days Time of Disposition: 09:08
[2018-12-24] MEDS ORDERED: DECADRON ONE (09:18)
[2018-12-24 15:22] VITALS: BP 132/85
== END 2018-12-24 09:23 | disposition home or self-care (01) ==
LOC: ED 08:29
DX: H66.91 Otitis media, unspecified, right ear (principal); I10 Essential (primary) hypertension; E11.9 Type 2 diabetes mellitus without complications; K21.9 Gastro-esophageal reflux disease without esophagitis; Z88.2 Allergy status to sulfonamides; Z90.89 Acquired absence of other organs; Z88.8 Allergy status to other drugs, medicaments and biological substances
CPT/HCPCS: 96372; 99282; J1100

== ENCOUNTER 2019-01-02 07:14 | Outpatient (CLI) | payer BC ==
--- NOTE | 2019-01-02 08:48 | Mammography Report ---
BILATERAL DIGITAL SCREENING MAMMOGRAM with CAD: 01/02/19 07:14:00 CLINICAL: Routine screening. COMPARISON:09/13/17 FINDINGS: The breasts are heterogeneously dense, which may obscure small masses. Left retroareolar asymmetries require additional imaging.No architectural distortion or suspicious calcifications.The right breast is negative. IMPRESSION: Left asymmetries requiring further workup. BI-RADS CATEGORY: 0 -- Additional Imaging Evaluation Required RECOMMENDATION: Recall for left mediolateral and spot magnification MLO and CC views and left breast ultrasound if needed. ACR BI-RADS MAMMOGRAPHIC CODES: 0 = Needs additional imaging evaluation; 1 = Negative; 2 = Benign; 3 = Probably benign; 4 = Suspicious; 5 = Malignant; 6 = Known biopsy-proven malignancy COMMENT: 1. Dense breast tissue, i.e., adenosis, fibrocystic changes, etc., may obscure an underlying neoplasm. 2. Approximately 10% of cancers are not detected with mammography. 3. A negative mammography report should not delay biopsy if a clinically suspicious mass is present. COMMENT: Patient follow-up letters are generated via our [employer] application.
== END 2019-01-02 07:15 | disposition home or self-care (01) ==
LOC: MAMMO 07:14
PROVIDERS: ATTEND Obstetrics & Gynecology
DX: Z12.31 Encounter for screening mammogram for malignant neoplasm of breast (principal); I10 Essential (primary) hypertension; K21.9 Gastro-esophageal reflux disease without esophagitis; E11.9 Type 2 diabetes mellitus without complications; E66.9 Obesity, unspecified; Z72.89 Other problems related to lifestyle
CPT/HCPCS: 77067

== ENCOUNTER 2019-01-19 08:16 | Outpatient (CLI) | payer BC ==
--- NOTE | 2019-01-19 08:41 | Mammography Report ---
LEFT DIGITAL DIAGNOSTIC MAMMOGRAM : 01/19/19 08:16:00 CLINICAL: Recalled for asymmetries. COMPARISON:01/02/19 screening FINDINGS: Additional mammographic views were performed and are negative.Satisfactory effacement of asymmetries. IMPRESSION: No mammographic evidence of malignancy. BI-RADS CATEGORY: 1 -- Negative RECOMMENDATION: Routine mammographic screening in one year. ACR BI-RADS MAMMOGRAPHIC CODES: 0 = Needs additional imaging evaluation; 1 = Negative; 2 = Benign; 3 = Probably benign; 4 = Suspicious; 5 = Malignant; 6 = Known biopsy-proven malignancy COMMENT: 1. Dense breast tissue, i.e., adenosis, fibrocystic changes, etc., may obscure an underlying neoplasm. 2. Approximately 10% of cancers are not detected with mammography. 3. A negative mammography report should not delay biopsy if a clinically suspicious mass is present. COMMENT: Patient follow-up letters are generated via our [employer] application.
== END 2019-01-19 08:17 | disposition home or self-care (01) ==
LOC: MAMMO 08:16
PROVIDERS: ATTEND Obstetrics & Gynecology
DX: R92.8 Other abnormal and inconclusive findings on diagnostic imaging of breast (principal); R97.8 Other abnormal tumor markers; I10 Essential (primary) hypertension; K21.9 Gastro-esophageal reflux disease without esophagitis; E11.9 Type 2 diabetes mellitus without complications; Z72.89 Other problems related to lifestyle

== ENCOUNTER 2019-04-04 08:08 | Outpatient (CLI) | payer BC ==
[2019-04-04 08:20] LABS: Basophils % (Auto) 0.5 % (0.0-1.8); Eosinophils # (Auto) 0.1 K/mm3 (0.0-0.4); Eosinophils % (Auto) 1.1 % (0.0-4.3); Hematocrit 44.5 % (30.3-42.9); Hemoglobin 15.2 gm/dl (10.1-14.3); Lymphocytes # (Auto) 1.7 K/mm3 (1.2-5.4); Lymphocytes % (Auto) 36.3 % (13.4-35.0); Mean Corpuscular HGB Conc 34 % (30-34); Mean Corpuscular Volume 90 fl (79-97); Monocytes # (Auto) 0.3 K/mm3 (0.0-0.8); Monocytes % (Auto) 6.7 % (0.0-7.3); Platelet Count 206 K/mm3 (140-440); Red Blood Count 4.95 M/mm3 (3.65-5.03); Red Cell Distribution Width 12.8 % (13.2-15.2)
[2019-04-04 08:40] LABS: Alanine Aminotransferase 9 units/L (7-56); Albumin 4.2 g/dL (3.9-5); BUN/Creatinine Ratio 36; Blood Urea Nitrogen 18 mg/dL (7-17); Calcium 8.9 mg/dL (8.4-10.2); Chol/HDL Ratio 2.69 %; HDL Cholesterol 84 mg/dL (40-59); Hemolysis Index 3; LDL Cholesterol,Direct 141 mg/dL (50-130)
[2019-04-04 08:46] LABS: Free T4 (Free Thyroxine) 1.17 ng/dL (0.76-1.46)
[2019-04-07 19:38] LABS: Vitamin D, 25-OH, D2 9 ng/mL
== END 2019-04-04 08:09 | disposition home or self-care (01) ==
LOC: LAB 08:08
PROVIDERS: ATTEND Internal Medicine
DX: E11.65 Type 2 diabetes mellitus with hyperglycemia (principal); E78.5 Hyperlipidemia, unspecified; I10 Essential (primary) hypertension; K21.9 Gastro-esophageal reflux disease without esophagitis; E66.9 Obesity, unspecified
CPT/HCPCS: 36415; 80053; 80061; 82306; 82607; 82670; 83001; 83036; 84439; 84443; 85025

== ENCOUNTER 2019-08-28 19:59 | Emergency (ER) | payer BC ==
--- NOTE | 2019-08-28 20:28 | Event Note ---
ED Screening Note Date of service: 08/28/19 Time: 20:25 ED Screening Note: 44 y o female presents with lac to left 4th digit earlier to night while cutting an avocado tet up to date This initial assessment/diagnostic orders/clinical plan/treatment(s) is/are subject to change based on patients health status, clinical progression and re- assessment by fellow clinical providers in the ED. Further treatment and workup at subsequent clinical providers discretion. Patient/guardian urged not to elope from the ED as their condition may be serious if not clinically assessed and managed. Initial orders include: lav repair, dermabond? antibiotics
[2019-08-28] MEDS ORDERED: LIDOCAINE-MPF (1%) 10 MG/1 ML VIAL 5 ML INFILTRATI ONE (20:45)
[2019-08-28] MEDS ORDERED: ACETAMINOPHEN 500 MG TAB PO ONE (20:46)
[2019-08-28] MEDS ORDERED: NEOMY 3.5 MG/BACIT 400 UNITS/POLY B 5000 UNITS/GM OINT PACKET TP ONE ×2 (20:53→21:00)
--- NOTE | 2019-08-28 22:15 | Emergency Department Report ---
- General Chief Complaint: Wound/Laceration Stated Complaint: LAC LT FINGER Time Seen by Provider: 08/28/19 20:24 Source: patient Mode of arrival: Ambulatory Limitations: No Limitations - History of Present Illness Initial Comments: Patient is a 44-year-old white female with a history of hypertension, GERD and fzs-zelldmj-szpihaorg diabetes who presents to the ED with complaint of acute onset persistent painful bleeding left ring finger laceration after she accidentally cut her left ring finger when cutting a food at home about one hour ago. Patient denies numbness or tingling or weakness of left ring finger or dizziness, nausea and vomiting. Patient states states that she is up-to-date with her tetanus vaccinations. -: Sudden, hour(s) (1) Location: other (left ring finger) Extremity Location: Left: Hand (left ring finger lacerations) Place: home Patient Tetanus UTD: Yes Context: accidental Associated Symptoms: pain. denies: loss of feeling/numbness, suspect foreign body present, unable to move injured part, weakness followed by dizziness, nausea/vomiting, fever - Related Data Home Medications Medication Instructions Recorded Confirmed Last Taken Humalog 03/30/18 03/29/18 Pantoprazole [Protonix TAB] 20 mg QDAY 03/30/18 03/30/18 03/29/18 Previous Rx's Medication Instructions Recorded Last Taken Type Ciprofloxacin HCl [Cipro] 500 mg PO BID #14 tablet 12/24/18 Unknown Rx Doxycycline Hyclate [Doxycycline 100 mg PO Q12HR #20 tab 08/28/19 Unknown Rx Hyclate TAB] traMADol [Ultram] 50 mg PO Q6HR PRN #15 tablet 08/28/19 Unknown Rx Allergies Allergy/AdvReac Type Severity Reaction Status Date / Time cefaclor [From Ceclor] Allergy Anaphylaxis Verified 03/22/18 16:18 Sulfa (Sulfonamide Allergy Rash Verified 03/22/18 16:18 Antibiotics) ED Review of Systems ROS: Stated complaint: LAC LT FINGER Other details as noted in HPI Constitutional: denies: chills, fever Eyes: denies: eye pain, eye discharge, vision change ENT: denies: ear pain, throat pain Respiratory: denies: cough, shortness of breath, wheezing Cardiovascular: denies: chest pain, palpitations Endocrine: no symptoms reported Gastrointestinal: denies: abdominal pain, nausea, diarrhea Genitourinary: denies: urgency, dysuria, discharge Musculoskeletal: denies: back pain, joint swelling, arthralgia Skin: other (Bleeding left ring finger laceration with mild tenderness). denies: rash, lesions Neurological: denies: headache, weakness, paresthesias Psychiatric: denies: anxiety, depression Hematological/Lymphatic: denies: easy bleeding, easy bruising ED Past Medical Hx - Past Medical History Previous Medical History?: Yes Hx Hypertension: Yes (NO MEDS) Hx Congestive Heart Failure: No Hx Diabetes: Yes (X20 YEARS) Hx GERD: Yes Hx HIV: No - Surgical History Past Surgical History?: Yes Additional Surgical History: tonsilectomy/adenoidectomy- GASTRIC SLEEVE 2016 - Social History Smoking Status: Never Smoker Substance Use Type: None - Medications Home Medications: Home Medications Medication Instructions Recorded Confirmed Last Taken Type Humalog 03/30/18 03/29/18 History Pantoprazole [Protonix TAB] 20 mg QDAY 03/30/18 03/30/18 03/29/18 History Ciprofloxacin HCl [Cipro] 500 mg PO BID #14 tablet 12/24/18 Unknown Rx Doxycycline Hyclate [Doxycycline 100 mg PO Q12HR #20 tab 08/28/19 Unknown Rx Hyclate TAB] traMADol [Ultram] 50 mg PO Q6HR PRN #15 tablet 08/28/19 Unknown Rx ED Physical Exam - General Limitations: No Limitations General appearance: alert, in no apparent distress - Head Head exam: Present: atraumatic, normocephalic, normal inspection - Eye Eye exam: Present: normal appearance, PERRL, EOMI Pupils: Present: normal accommodation - ENT ENT exam: Present: normal exam, normal orophraynx, mucous membranes moist, TM's normal bilaterally, normal external ear exam - Neck Neck exam: Present: normal inspection, full ROM - Respiratory Respiratory exam: Present: normal lung sounds bilaterally. Absent: respiratory distress, wheezes, rales, chest wall tenderness, accessory muscle use, decreased breath sounds - Cardiovascular Cardiovascular Exam: Present: regular rate, normal rhythm, normal heart sounds. Absent: systolic murmur, diastolic murmur, rubs, gallop - GI/Abdominal GI/Abdominal exam: Present: soft, normal bowel sounds. Absent: tenderness, hyperactive bowel sounds, hypoactive bowel sounds - Extremities Exam Extremities exam: Present: normal inspection, full ROM, tenderness (Palpable left ring finger mild tenderness bleeding 3 cm laceration), normal capillary refill - Back Exam Back exam: Present: normal inspection, full ROM. Absent: tenderness, muscle spasm, paraspinal tenderness - Neurological Exam Neurological exam: Present: alert, oriented X3, CN II-XII intact, normal gait, reflexes normal - Psychiatric Psychiatric exam: Present: normal affect, normal mood - Skin Skin exam: Present: warm, dry, intact, normal color, other (Bleeding mildly tender 3 cm laceration on left ring finger). Absent: rash ED Course - Reevaluation(s) Reevaluation #1: 08/28/19 22:18 This is a 44-year-old female who presented to the ED with bleeding left ring finger laceration for one hour after she accidentally cut her left ring finger when cutting fruit at home. Patient states that she is up-to-date with her tetanus vaccinations. In the ED, patient is alert and oriented 3 and is not in distress. Patient was treated for pain in the ED and had the left ring finger laceration suture per protocol. Patient tolerated the procedure well and was discharged home on prophylactic antibiotics and advised to follow-up with her primary care physician in 7-10 days for reevaluation or return to the ED immediately if symptoms get worse. Patient was otherwise advised to return to the ED or to her primary care physician for suture removal in 12-14 days. - Laceration /Wound Repair Left Palm Finger Wound Location: upper extremity (left ring finger laceration) Wound Length (cm): 3 Wound's Depth, Shape: superficial, linear Wound Explored: contaminated Irrigated w/ Saline (ccs): 40 Betadine Prep?: Yes Anesthesia: 1% Lidocaine Volume Anesthetic (ccs): 5 Wound Debrided: extensive Wound Repaired With: sutures Suture Size/Type: 4:0, proline Number of Sutures: 6 Layer Closure?: No Sterile Dressing Applied?: Yes Progress: Patient tolerated procedure well. Patient is neurovascularly intact after the procedure on the left ring finger. Patient was discharged home on medications and advised to return to the ED or to her primary care physician in 12-14 days for suture removal, otherwise return to the ED immediately if symptoms get worse. ED Medical Decision Making - Medical Decision Making This is a 44-year-old female who presented to the ED with bleeding left ring finger laceration for one hour after she accidentally cut her left ring finger when cutting fruit at home. Patient states that she is up-to-date with her tetanus vaccinations. In the ED, patient is alert and oriented 3 and is not in distress. Patient was treated for pain in the ED and had the left ring finger laceration suture per protocol. Patient tolerated the procedure well and was discharged home on prophylactic antibiotics and advised to follow-up with her primary care physician in 7-10 days for reevaluation or return to the ED immediately if symptoms get worse. Patient was otherwise advised to return to the ED or to her primary care physician for suture removal in 12-14 days. - Differential Diagnosis Left ring finger laceration; puncture wound of finger Critical care attestation.: If time is entered above; I have spent that time in minutes in the direct care of this critically ill patient, excluding procedure time. ED Disposition Clinical Impression: Laceration of left ring finger w/o foreign body w/o damage to nail Qualifiers: Encounter type: initial encounter Qualified Code(s): S61.215A - Laceration without foreign body of left ring finger without damage to nail, initial encounter Disposition: DC-01 TO HOME OR SELFCARE Is pt being admited?: No Does the pt Need Aspirin: No Condition: Stable Instructions: Finger Laceration (ED) Additional Instructions: Take medication with food, drink plenty of fluids and follow-up with your primary care physician in 7-10 days for reevaluation. Return to the ED immediately if symptoms get worse. Otherwise return to the ED or to her primary care physician in 12-14 days for suture removal. Prescriptions: Doxycycline Hyclate [Doxycycline Hyclate TAB] 100 mg PO Q12HR #20 tab traMADol [Ultram] 50 mg PO Q6HR PRN #15 tablet PRN Reason: Pain Referrals: [facility] [Outside] - 3-5 Days Time of Disposition: 22:12 Print Language: KUWAITI
[2019-08-29 07:14] VITALS: BP 132/74
== END 2019-08-28 21:15 | disposition home or self-care (01) ==
LOC: ED 19:59
DX: S61.215A Laceration without foreign body of left ring finger without damage to nail, initial encounter (principal); I10 Essential (primary) hypertension; E11.9 Type 2 diabetes mellitus without complications; K21.9 Gastro-esophageal reflux disease without esophagitis; Z90.89 Acquired absence of other organs; Z79.899 Other long term (current) drug therapy; Z88.2 Allergy status to sulfonamides; W45.8XXA Other foreign body or object entering through skin, initial encounter; Y93.89 Activity, other specified; Y92.89 Other specified places as the place of occurrence of the external cause; Y99.8 Other external cause status
CPT/HCPCS: 99282; A6250

== ENCOUNTER 2019-09-11 08:03 | Outpatient (CLI) | payer BC ==
[2019-09-11 08:36] LABS: Chol/HDL Ratio 3.22 %
[2019-09-14 11:18] LABS: Vitamin D, 25-OH, D2 6 ng/mL
== END 2019-09-11 08:04 | disposition home or self-care (01) ==
LOC: LAB 08:03
PROVIDERS: ATTEND Internal Medicine
DX: E78.5 Hyperlipidemia, unspecified (principal); E11.65 Type 2 diabetes mellitus with hyperglycemia; E55.9 Vitamin D deficiency, unspecified; I10 Essential (primary) hypertension; K21.9 Gastro-esophageal reflux disease without esophagitis; E66.9 Obesity, unspecified
CPT/HCPCS: 36415; 80061; 82306; 83036

== ENCOUNTER 2020-01-02 07:51 | Day surgery (SDC) | payer BC ==
[~2020-01-02 07:51] MED LIST changes: -MARCAINE 0.5% INFILTRATI ONE; -NACL 0.9% IR ONE; +SODIUM CHLORIDE 0.9% 1000 ML 1,000 ML IV SCH; -WATER FOR IRRIG STERILE IR ONE
--- NOTE | 2020-01-02 08:36 | Anesthesia Day of Surgery ---
Anesthesia Day of Surgery - Day of Surgery Patient Examined: Yes Patient H&P Reviewed: Yes Patient is NPO: Yes
--- NOTE | 2020-01-02 08:37 | Anesthesia Consultation ---
Anesthesia Consult and Med Hx Date of service: 01/02/20 - Airway Anesthetic Teeth Evaluation: Good ROM Head & Neck: Adequate Mental/Hyoid Distance: Adequate Mallampati Class: Class II (missing teeth) - Pulmonary Exam CTA: Yes - Cardiac Exam Cardiac Exam: RRR - Pre-Operative Health Status ASA Pre-Surgery Classification: ASA3 - Pulmonary Hx Smoking: No Hx Sleep Apnea: Yes - Cardiovascular System Hx Hypertension: Yes (NO MEDS) - Central Nervous System Hx Psychiatric Problems: No - Gastrointestinal Hx Gastroesophageal Reflux Disease: Yes - Endocrine Hx Insulin Dependent Diabetes: Yes Hx Non-Insulin Dependent Diabetes: Yes - Other Systems Hx Alcohol Use: Yes (RARELY) Hx Substance Use: No Hx Cancer: No Hx Obesity: Yes
[2020-01-02] MEDS ORDERED: propofoL 200 MG/20 ML VIAL IV ONE (09:02)
[2020-01-02] MEDS ORDERED: LIDOCAINE (1%) 10 MG/1 ML VIAL 20 ML MDV ONE (09:10)
[2020-01-02] MEDS ORDERED: MIDAZOLAM 2 MG/2 ML INJ ONE (09:10)
--- NOTE | 2020-01-02 09:19 | Short Stay Summary ---
Short Stay Documentation Date of service: 01/02/20 Narrative H&P: Patient is a 44 yo wf who presents for outpatient egd. h/o chronic reflux sx's, n/v, and abd pain. on h2 francisca. no new symptoms since last gi appt. - History H&P: obtained from office Past Medical History: other (no changes from clinic note) Past Surgical History: Other (no changes) Social history: no significant social history - Allergies and Medications Current Medications: Allergies cefaclor [From Ceclor] Allergy (Verified 03/22/18 16:18) Anaphylaxis Sulfa (Sulfonamide Antibiotics) Allergy (Verified 03/22/18 16:18) Rash Home Medications Medication Instructions Recorded Confirmed Last Taken Type Humalog 10 units SUB-Q PRN PRN 03/30/18 01/02/20 01/02/20 History Pantoprazole [Protonix TAB] 20 mg QDAY 03/30/18 12/27/19 12/27/19 History Ciprofloxacin HCl [Cipro] 500 mg PO BID #14 tablet 12/24/18 12/27/19 Unknown Rx Doxycycline Hyclate [Doxycycline 100 mg PO Q12HR #20 tab 08/28/19 12/27/19 Unknown Rx Hyclate TAB] traMADoL [Ultram] 50 mg PO Q6HR PRN #15 tablet 08/28/19 12/27/19 Unknown Rx Famotidine 40 mg PO DAILY 12/27/19 01/02/20 01/01/20 History Toujeo Solostar 16 units SUB-Q DAILY 12/27/19 12/27/19 12/27/19 History Trulance 3 mg PO DAILY 12/27/19 01/02/20 01/01/20 History Active Medications Sodium Chloride (Nacl 0.9% 1000 Ml) 1,000 mls @ 50 mls/hr IV DIRECT ROLAND Last Admin: 01/02/20 08:39 Dose: 50 mls/hr Documented by: - Physical exam General appearance: no acute distress Lungs: Clear to auscultation Gastrointestinal: normal - Brief post op/procedure progress note Date of procedure: 01/02/20 Pre-op diagnosis: abdominal pain, n/v, gerd Post-op diagnosis: same (mild gastritis. biopsied) Procedure: egd with biopsies Anesthesia: MAC Findings: Mild erythematous mucosa in the antrum. Biopsied. otherwise unremarkable upper endoscopy Surgeon: ANTONETTE STODDARD Estimated blood loss: minimal Pathology: list (Gastric biopsies) Specimen disposition: to lab - Disposition Condition at discharge: Good Disposition: DC-01 TO HOME OR SELFCARE Short Stay Discharge Plan Follow up with: ARNAV FRANCO MD [Primary Care Provider] - 7 Days
--- NOTE | 2020-01-02 09:24 | Operative Report ---
Operative Report Operative Report: Esophagogastroduodenoscopy Procedure Note Date of procedure: 01/02/2020 Endoscopist: Riccardo Greenberg Pre-op diagnosis/indication: Abdominal pain, GERD, nausea/vomiting Post-op diagnosis: Mild gastritis MEDICATIONS: MAC COMPLICATIONS: No immediate complications ESTIMATED BLOOD LOSS: Minimal DESCRIPTION OF PROCEDURE: After consent was obtained, the patient was placed in the left lateral decubitis position. The olympus endoscope was inserted into the patient's mouth under direct vision and advanced to the 2nd portion of the duodenum without difficulty. The patient tolerated the procedure well. The views of the mucosa were good. The patient's vital signs were monitored continuously throughout the procedure. FINDINGS: The esophagus appeared normal There was mild erythematous mucosa in the antrum of the stomach. There was bile seen in the antrum. Biopsies were obtained. Otherwise, the stomach appeared normal. The duodenum appeared normal IMPRESSION: 1. Mild gastritis. Biopsied RECOMMENDATIONS: -follow up pathology -continue current medications -follow-up in gi clinic as scheduled
[2020-01-02] MEDS ORDERED: WATER FOR IRRIG STERILE 1,000 ML BOTTLE ONE (09:31)
[2020-01-02] MEDS ORDERED: WATER FOR IRRIG STERILE 250 ML BOTTLE IR ONE (09:32)
[2020-01-02 09:57] VITALS: BP 109/71
== END 2020-01-02 07:52 | disposition home or self-care (01) ==
LOC: GIO 07:51
PROVIDERS: ATTEND Internal Medicine Gastroenterology
DX: K21.9 Gastro-esophageal reflux disease without esophagitis (principal); R10.9 Unspecified abdominal pain; R11.2 Nausea with vomiting, unspecified; K29.70 Gastritis, unspecified, without bleeding; K31.89 Other diseases of stomach and duodenum; G47.30 Sleep apnea, unspecified; I10 Essential (primary) hypertension; E11.9 Type 2 diabetes mellitus without complications; E66.9 Obesity, unspecified; Z72.89 Other problems related to lifestyle; Z88.2 Allergy status to sulfonamides; Z88.8 Allergy status to other drugs, medicaments and biological substances; Z79.84 Long term (current) use of oral hypoglycemic drugs; Z79.899 Other long term (current) drug therapy; Z98.890 Other specified postprocedural states; Z68.30 Body mass index [BMI] 30.0-30.9, adult
CPT/HCPCS: 43239; 81025; 82962; 88305; 88342; J2250; J2704; J7030

== ENCOUNTER 2020-01-17 07:27 | Outpatient (CLI) | payer BC ==
--- NOTE | 2020-01-17 08:28 | Mammography Report ---
DIGITAL SCREENING MAMMOGRAM WITH CAD, 01/17/2020 INDICATION: Routine screening mammography. TECHNIQUE: Digital bilateral 2D mammography was obtained in the craniocaudal and mediolateral obliq ue projections. This examination was interpreted with the benefit of Computer-Aided Detection analysi s. COMPARISON: 01/02/2019 FINDINGS: Breast Density: The breasts are heterogeneously dense, which may obscure small masses. Left asymmetries are new and require additional imaging. No architectural distortion or suspicious ca lcifications of the left breast. There is no evidence of dominant mass, suspicious calcifications or architectural distortion in the right breast. IMPRESSION: Left asymmetries requiring additional imaging. Recommend recall for left lateral and spot magnification MLO and CC views and left breast ultrasound if needed. Follow up recommendation: Special View: Mag Category 0: Incomplete. Needs additional imaging evaluation and/or prior mammograms for comparison. A "normal" or negative report should not discourage follow up or biopsy of a clinically significant f inding. A written summary of these findings will be mailed to the patient. The patient will be entered into a mammography reporting system which will generate a reminder letter for the patient's next appointmen t at the appropriate interval. The [employer] recommends yearly mammograms starting at age 40 and continuing as l rosalinda as a woman is in good health. Breast MRI is recommended for women with an approximate 20-25% or greater lifetime risk of breast cancer, including women with a strong family history of breast or ova carrie cancer or who have been treated for Hodgkin's disease. Signer Name: Marcos De La Paz MD Signed: 01/17/2020 8:23 AM Workstation Name: [id number]
== END 2020-01-17 07:28 | disposition home or self-care (01) ==
LOC: MAMMO 07:27
PROVIDERS: ATTEND Obstetrics & Gynecology
DX: Z12.31 Encounter for screening mammogram for malignant neoplasm of breast (principal)
CPT/HCPCS: 77067

== ENCOUNTER 2020-06-25 07:58 | Outpatient (CLI) | payer BC ==
[2020-06-25 08:19] LABS: Basophils % (Auto) 0.5 % (0.0-1.8); Eosinophils % (Auto) 1.1 % (0.0-4.3); Hematocrit 43.6 % (30.3-42.9); Hemoglobin 15.5 gm/dl (10.1-14.3); Lymphocytes # (Auto) 1.7 K/mm3 (1.2-5.4); Mean Corpuscular HGB Conc 36 % (30-34); Mean Corpuscular Volume 90 fl (79-97); Monocytes # (Auto) 0.2 K/mm3 (0.0-0.8); Monocytes % (Auto) 5.5 % (0.0-7.3); Platelet Count 221 K/mm3 (140-440); Red Blood Count 4.87 M/mm3 (3.65-5.03); Red Cell Distribution Width 12.2 % (13.2-15.2)
[2020-06-25 08:39] LABS: Alanine Aminotransferase 9 units/L (7-56); Albumin 4.1 g/dL (3.9-5); Blood Urea Nitrogen 10 mg/dL (7-17); Calcium 9.6 mg/dL (8.4-10.2); Chol/HDL Ratio 3.36 %; HDL Cholesterol 57 mg/dL (40-59); Hemolysis Index 3; Iron 125 ug/dL (37-170); LDL Cholesterol,Direct 128 mg/dL (50-130)
[2020-06-25 08:46] LABS: BUN/Creatinine Ratio 17
== END 2020-06-25 07:59 | disposition home or self-care (01) ==
LOC: LAB 07:58
PROVIDERS: ATTEND Internal Medicine
DX: Z00.00 Encounter for general adult medical examination without abnormal findings (principal); Z13.29 Encounter for screening for other suspected endocrine disorder; E11.65 Type 2 diabetes mellitus with hyperglycemia; E78.5 Hyperlipidemia, unspecified; E55.9 Vitamin D deficiency, unspecified; Z98.84 Bariatric surgery status
CPT/HCPCS: 36415; 80053; 80061; 82306; 82607; 82728; 82747; 83036; 83540; 84425; 84443; 85025

== ENCOUNTER 2020-08-14 06:23 | Day surgery (SDC) | payer BC ==
[~2020-08-14 06:23] MED LIST changes: +ACETAMINOPHEN 500 MG TAB PO SCH; +BUPIVACAINE-EPINEPHRINE/PF 0.25%-1:200,000 (30 ML) VIAL INFILTRATI ONE; +GABAPENTIN 300 MG CAP PO NR; +LACTATED RINGERS 1,000 ML IV SCH; +MIDAZOLAM 2 MG/2 ML INJ IV NR; -SODIUM CHLORIDE 0.9% 1000 ML 1,000 ML IV SCH; +SODIUM CHLORIDE 0.9% IRRIG SOLN 3000 ML IR ONE; +fentaNYL 100 MCG/2 ML INJ IV PRN; +methylPREDNISolone ACETATE 40 MG/1 ML INJ INTRA-ARTI ONE
--- NOTE | 2020-08-14 07:27 | Anesthesia Day of Surgery ---
Anesthesia Day of Surgery - Day of Surgery Patient Examined: Yes Patient H&P Reviewed: Yes Patient is NPO: Yes
--- NOTE | 2020-08-14 07:27 | Anesthesia Consultation ---
Anesthesia Consult and Med Hx Date of service: 08/14/20 - Airway Anesthetic Teeth Evaluation: Good ROM Head & Neck: Adequate Mental/Hyoid Distance: Adequate Mallampati Class: Class II Intubation Access Assessment: Good - Pulmonary Exam CTA: Yes - Cardiac Exam Cardiac Exam: RRR - Pre-Operative Health Status ASA Pre-Surgery Classification: ASA3 Proposed Anesthetic Plan: General Nerve Block: ISb - Pulmonary Hx Smoking: No Hx Sleep Apnea: Yes (DX SLEEP APNEA , NO CPAP) - Cardiovascular System Hx Hypertension: Yes (NO MEDS) - Central Nervous System Hx Back Pain: Yes Hx Psychiatric Problems: No - Gastrointestinal Hx Gastroesophageal Reflux Disease: Yes (uncontolled with medication) - Endocrine Hx Insulin Dependent Diabetes: Yes Hx Non-Insulin Dependent Diabetes: Yes - Other Systems Hx Alcohol Use: Yes (RARELY) Hx Substance Use: No Hx Cancer: No Hx Obesity: Yes
[2020-08-14] MEDS ORDERED: SUCCINYLCHOLINE CHLORIDE 200 MG/10 ML INJ MDV ONE ×2 (07:34→11:16)
[2020-08-14] MEDS ORDERED: LIDOCAINE MPF (2%) 20 MG/1 ML VIAL 5 ML ONE (07:34)
[2020-08-14] MEDS ORDERED: propofoL 200 MG/20 ML VIAL IV ONE (07:34)
[2020-08-14] MEDS ORDERED: fentaNYL 100 MCG/2 ML INJ ONE (07:34)
[2020-08-14] MEDS ORDERED: EPINEPHrine 30 MG/30 ML INJ IV ONE (07:36)
[2020-08-14] MEDS ORDERED: BUPIVACAINE-EPINEPHRINE/PF 0.25%-1:200,000 (30 ML) VIAL INFILTRATI ONE (07:36)
[2020-08-14] MEDS ORDERED: methylPREDNISolone ACETATE 40 MG/1 ML INJ ONE (07:37)
[2020-08-14] MEDS ORDERED: fentaNYL 100 MCG/2 ML INJ IV PRN (07:44)
[2020-08-14] MEDS ORDERED: INSULIN REGULAR, HUMAN 100 UNIT/ML 3ML VIAL ONE (07:49)
[2020-08-14] MEDS ORDERED: INSULIN REGULAR, HUMAN 100 UNITS/1 ML ONE ×2 (07:49)
[2020-08-14] MEDS ORDERED: BUPIVACAINE-EPINEPHRINE/PF 0.25%-1:200,000 (10 ML) VIAL INFILTRATI ONE (07:55)
[2020-08-14] MEDS ORDERED: INSULIN REGULAR, HUMAN 100 UNIT/ML 3ML VIAL SUB-Q ONE ×2 (08:00→12:00)
[2020-08-14 08:17] LABS: Hematocrit 42.7 % (30.3-42.9); Hemoglobin 14.5 gm/dl (10.1-14.3); Mean Corpuscular HGB Conc 34 % (30-34); Mean Corpuscular Volume 92 fl (79-97); Platelet Count 186 K/mm3 (140-440); Red Blood Count 4.66 M/mm3 (3.65-5.03); Red Cell Distribution Width 12.6 % (13.2-15.2)
[2020-08-14] MEDS ORDERED: VANCOMYCIN/NS 1 GM/250 ML 1 GM/250 ML BAG IV NR (09:00)
[2020-08-14] MEDS ORDERED: EPINEPHrine/PF 1 MG/1 ML INJ IV ONE (10:27)
[2020-08-14] MEDS ORDERED: SODIUM CHLORIDE 0.9% IRRIG SOLN 3000 ML IR ONE (10:27)
[2020-08-14] MEDS ORDERED: GLYCOPYRROLATE 0.4 MG/2 ML INJ ONE (11:00)
[2020-08-14] MEDS ORDERED: NEOSTIGMINE 10MG/10 ML INJ MDV ONE (11:00)
[2020-08-14] MEDS ORDERED: PHENYLEPHRINE/NS 1,000 MCG/10 ML SYRINGE (OR USE) IV ONE (11:00)
[2020-08-14] MEDS ORDERED: TRIAMCINOLONE 40 MG/1 ML INJ ONE (11:09)
[2020-08-14] MEDS ORDERED: SODIUM CHLORIDE 0.9% 1000 ML 1,000 ML ONE (11:15)
[2020-08-14] MEDS ORDERED: ONDANSETRON 4 MG/2 ML INJ ONE (11:16)
[2020-08-14] MEDS ORDERED: ROCURONIUM 50 MG/5 ML INJ IV ONE (11:16)
[2020-08-14] MEDS ORDERED: dexAMETHasone 20 MG/5 ML VIAL ONE (11:16)
[2020-08-14] MEDS ORDERED: KETOROLAC 30 MG/1 ML INJ ONE (11:16)
[2020-08-14] MEDS ORDERED: methylPREDNISolone ACETATE 40 MG/1 ML INJ INTRA-ARTI ONE (11:23)
--- NOTE | 2020-08-14 11:26 | Procedure Note ---
Date of procedure: 08/14/20 Pre-op diagnosis: Impingement syndrome right shoulder Post-op diagnosis: same Procedure: Arthroscopy [right] shoulder with subacromial decompression Procedure The patient was brought to the OR after being given a scalene nerve block for postop pain management, she was placed on the table supine following induction with MAC anesthesia patient was turned into the right lateral decubitus position at which point the right shoulder was prepped and draped in the usual sterile manner. A timeout procedure was done to identify the patient and the correct operative site. Routine arthroscopic portals were made into the subacromial space examination of the subacromial space revealed patient had abundant bursal thickening with apparent partial thickness tears in the supraspinatus tendon along with a large bone spur noted at the distal acromion using a combination of arthroscopic shaver and tissue ablator the subacromial space was debrided of soft tissue and the arm was then rotated internally and externally to see if there were a full-thickness rotator cuff tear done was seen next the arthroscope was placed into the glenohumeral joint and examination here revealed the patient to have very little in the way of arthritic changes along the humeral he ad. In the glenoid fossa he was noted to have thinning of the labral tissue the biceps labral complex appeared to be intact without any undue tension noted next the arthroscope was removed from the glenohumeral joint and then repositioned into the subacromial space using a 5.5 bur or acromionizer the bone spurs were debrided. A second look was done to see if there are any any residual bony and soft tissue debris and none was seen the arthroscope was then removed the stab wounds were repaired routine postop dressings were applied and the patient tolerated the procedure Anesthesia: MAC, regional Surgeon: KRIS CHERRY Childcare Attendant: ARACELI DESHPANDE Estimated blood loss: minimal Pathology: none Condition: stable Disposition: PACU
--- NOTE | 2020-08-14 11:44 | Progress Note ---
Regional Anesthesia Block - Regional Anesthesia Block Start Time: 08:39 Stop Time: 08:47 Performed By:: DIONICIO LOCKWOOD Procedure: Patient consented for[R] ISB block for post surgical pain management. Patient identified, monitors placed, and time out performed. Brachial plexus at C6 identified via ultrasound. Skin prepped bilaterally with [chlorhexidine] and [20g stimuplex] needle advanced, negetaive aspiration, negetaive paresthesia. 0ml [Marcaine 0.25% with epi under ultrasound guidance on the [R] side. Pt tolerated procedure well. ABA Lockwood 08/14/20 850
[2020-08-14 12:23] VITALS: BP 115/69
== END 2020-08-14 13:05 | disposition home or self-care (01) ==
LOC: OR 06:23
PROVIDERS: ATTEND Orthopaedic Surgery
DX: M75.41 Impingement syndrome of right shoulder (principal); Z20.828 Contact with and (suspected) exposure to other viral communicable diseases; E78.00 Pure hypercholesterolemia, unspecified; K21.9 Gastro-esophageal reflux disease without esophagitis; G47.30 Sleep apnea, unspecified; E66.9 Obesity, unspecified; E11.9 Type 2 diabetes mellitus without complications; Z72.89 Other problems related to lifestyle; Z88.2 Allergy status to sulfonamides; Z79.899 Other long term (current) drug therapy; Z68.27 Body mass index [BMI] 27.0-27.9, adult; Z98.890 Other specified postprocedural states; Z98.51 Tubal ligation status; Z88.8 Allergy status to other drugs, medicaments and biological substances
CPT/HCPCS: 29822; 36415; 64415; 82962; 85027; A4217; J0171; J0330; J1030; J1100; J1885; J2250; J2370; J2405; J2704; J2710; J3010; J3370; J7030; J7120; U0003; J1815; J3301

== ENCOUNTER 2020-09-16 08:13 | Outpatient (CLI) | payer BC ==
[2020-09-18 08:34] LABS: Alanine Aminotransferase 8 units/L (7-56); BUN/Creatinine Ratio 18; Blood Urea Nitrogen 11 mg/dL (7-17); Calcium 9.4 mg/dL (8.4-10.2)
[2020-09-18 08:35] LABS: Hemolysis Index 8
== END 2020-09-16 08:14 | disposition home or self-care (01) ==
LOC: LAB 08:13
PROVIDERS: ATTEND Internal Medicine Endocrinology, Diabetes & Metabolism
DX: E11.9 Type 2 diabetes mellitus without complications (principal)
CPT/HCPCS: 36415; 80053; 84681

== ENCOUNTER 2020-12-23 08:41 | Outpatient (CLI) | payer BC ==
[2020-12-23 09:03] LABS: Basophils % (Auto) 0.8 % (0.0-1.8); Hematocrit 42.3 % (30.3-42.9); Hemoglobin 14.7 gm/dl (10.1-14.3); Lymphocytes % (Auto) 42.1 % (13.4-35.0); Mean Corpuscular HGB Conc 35 % (30-34); Mean Corpuscular Volume 88 fl (79-97); Monocytes # (Auto) 0.3 K/mm3 (0.0-0.8); Monocytes % (Auto) 6.4 % (0.0-7.3); Platelet Count 223 K/mm3 (140-440); Red Blood Count 4.81 M/mm3 (3.65-5.03); Red Cell Distribution Width 12.1 % (13.2-15.2)
[2020-12-23 09:20] LABS: Alanine Aminotransferase 14 units/L (7-56); Albumin 4.1 g/dL (3.9-5); Blood Urea Nitrogen 10 mg/dL (7-17); Chol/HDL Ratio 2.13 %; HDL Cholesterol 81 mg/dL (40-59); Hemolysis Index 7; LDL Cholesterol,Direct 95 mg/dL (50-130)
[2020-12-23 09:37] LABS: BUN/Creatinine Ratio 17
[2020-12-23 12:00] LABS: Creatinine,Urine 187.9 mg/dL (0.1-20.0)
[2020-12-23 12:11] LABS: Microalbumin/Creatinine Ratio 6.3 ug/mg
== END 2020-12-23 08:42 | disposition home or self-care (01) ==
LOC: LABHHL 08:41
PROVIDERS: ATTEND Internal Medicine Endocrinology, Diabetes & Metabolism
DX: E11.9 Type 2 diabetes mellitus without complications (principal)
CPT/HCPCS: 36415; 80053; 80061; 82043; 83036; 84443; 85025

== ENCOUNTER 2021-01-08 09:31 | Outpatient (CLI) | payer BC ==
--- NOTE | 2021-01-08 13:19 | Vascular Lab Report ---
VL venous duplex LE BILAT INDICATION / CLINICAL INFORMATION: VARICOSE VEINS OF BILATERAL LE WITH OTHER COMPLICATIONS. TECHNIQUE: Duplex doppler imaging was performed using venous compression and other maneuvers. COMPARISON: None available. FINDINGS: No venous thrombosis is identified within the visualized extremity vasculature. ADDITIONAL FINDINGS: None. IMPRESSION: 1. No sonographic evidence for DVT in the visualized bilateral lower extremity vasculature. 2. Reflux is seen in the bilateral EIVs, right common femoral vein, and bilateral superficial femora l veins. No reflux seen within the greater saphenous veins. Signer Name: Og Levy MD Signed: 01/08/2021 1:14 PM Workstation Name: [id number]
== END 2021-01-08 09:32 | disposition home or self-care (01) ==
LOC: VAS 09:31
PROVIDERS: ATTEND Surgery Vascular Surgery
DX: I83.893 Varicose veins of bilateral lower extremities with other complications (principal)
CPT/HCPCS: 93970

== ENCOUNTER 2021-10-09 07:06 | Outpatient (CLI) | payer BC | END 2021-10-09 07:07 | disposition home or self-care (01) | LOC: MAMMO 07:06 | PROVIDERS: ATTEND Obstetrics & Gynecology | DX: Z12.31 Encounter for screening mammogram for malignant neoplasm of breast (principal) | CPT/HCPCS: 77067 ==